=== PATIENT | male | born 1985 | race Native Hawaiian/Other Pacific Islander ===

== ENCOUNTER 2020-03-13 08:29 | Emergency (ER) | payer OTHER ==
[~2020-03-13] VITALS: Ht 177.8 cm; Wt 86.2 kg
[2020-03-13 08:32] VITALS: TEMP 98.3
[2020-03-13 09:12] LABS: POTASSIUM 3.6 mmol/L (3.6-5.2)
[2020-03-13 09:22] LABS: PARTIAL THROMBOPLASTIN TIME 23.2 SECONDS (24.5-33.6)
[2020-03-13 09:23] LABS: PLATELET COUNT 219 K/uL (142-355)
[2020-03-13 10:24] VITALS: BP 118/82
== END 2020-03-13 10:24 | disposition home or self-care (01) ==
LOC: ED 08:29
PROVIDERS: Family Medicine
DX: N13.2 Hydronephrosis with renal and ureteral calculous obstruction (principal)
CPT/HCPCS: 36415; 80053; 85027; 85610; 85730; 96374; 96375; 99284; J1885; J2405

== ENCOUNTER 2021-05-08 19:07 | Emergency (ER) | payer OTHER ==
[~2021-05-08] VITALS: Ht 177.8 cm; Wt 90.7 kg
[2021-05-08 19:31] LABS: PLATELET COUNT 254 K/uL (142-355)
[2021-05-08 19:47] LABS: POTASSIUM 3.6 mmol/L (3.6-5.2)
[2021-05-08 22:00] VITALS: BP 120/80; TEMP 97.9
== END 2021-05-08 22:00 | disposition home or self-care (01) ==
LOC: ED 19:07
PROVIDERS: Hospitalist
PROC: 0T9B70Z Drainage of Bladder with Drainage Device, Via Natural or Artificial Opening (ICD-10-PCS; principal; 2021-05-08)
DX: N13.2 Hydronephrosis with renal and ureteral calculous obstruction (principal); Z87.442 Personal history of urinary calculi
CPT/HCPCS: 36415; 51702; 80053; 81000; 85027; 93005; 96360; 96365; 96376; 99284; J0696; J1170; J1885; J2270; J2405

== ENCOUNTER 2021-06-30 11:27 | Emergency (ER) | payer OTHER ==
[~2021-06-30] VITALS: Ht 177.8 cm; Wt 90.7 kg
[2021-06-30 11:35] VITALS: TEMP 97.3
[2021-06-30 12:18] LABS: PLATELET COUNT 219 K/uL (142-355)
[2021-06-30 12:25] LABS: POTASSIUM 4.5 mmol/L (3.6-5.2)
[2021-06-30 14:11] VITALS: BP 159/81
== END 2021-06-30 14:11 | disposition home or self-care (01) ==
LOC: ED 11:27
PROVIDERS: Emergency Medicine
DX: N13.2 Hydronephrosis with renal and ureteral calculous obstruction (principal); Z87.442 Personal history of urinary calculi
CPT/HCPCS: 36415; 80048; 85027; 96360; 96375; 96376; 99284; J1885; J2175; J2405

== ENCOUNTER 2022-03-11 22:30 | Emergency (ER) | payer OTHER ==
[~2022-03-11] VITALS: Ht 177.8 cm; Wt 90.7 kg
[2022-03-11 22:35] VITALS: TEMP 97.9
[2022-03-11 23:29] LABS: PLATELET COUNT 193 K/uL (142-355)
[2022-03-11 23:40] LABS: POTASSIUM 3.9 mmol/L (3.6-5.2)
[2022-03-12 06:45] VITALS: BP 113/66
== END 2022-03-12 06:46 | disposition short-term general hospital (02) ==
LOC: ED 22:30
PROVIDERS: Emergency Medicine Emergency Medical Services
DX: N13.2 Hydronephrosis with renal and ureteral calculous obstruction (principal); Z87.442 Personal history of urinary calculi
CPT/HCPCS: 36415; 80048; 81002; 81015; 85007; 85027; 96360; 96374; 96375; 96376; 99284; J1885; J2270; J2405